=== PATIENT | male | born 1960 | race Caucasian/White ===

== ENCOUNTER → 2021-07-09 | Outpatient (CLI) | payer MEDICARE ==
--- NOTE | 2021-07-09 09:10 | CT ---
EXAMINATION TYPE: CT angio abd aorta w/Runoff DATE OF EXAM: 07/09/2021 COMPARISON: None HISTORY: claudication both legs CT DLP: 915.1 mGycm CONTRAST: CTA thoracic and abdominal aorta with 3-D reconstruction is performed and with IV Contrast, patient i njected with 125 mL of Isovue 370. Please note examination is slightly limited given poor timing of the contrast bolus and delayed imagi ng. Contrast CTA of the abdominal aorta with runoff of the lower extremity arterial system was performed from the lung bases through the ankles and feet. 3-D reconstruction imaging obtained at a separate wo rkstation. ABDOMINAL AORTA: Atheromatous changes of the abdominal aorta without evidence for aneurysm. Iliac vessels: Atheromatous changes of the iliac vessels without stenosis greater than 50%. Femoral arteries: There is long segment occlusion of the right superficial femoral artery with recons titution noted distally. Right-sided profunda femoris is patent however distal branches demonstrated high-grade stenosis. Proximal and mid portions of the left superficial femoral artery are patent with mild atheromatous change. Distally there is extensive atheromatous plaque resulting in high-grade st enosis and short segment occlusion. There is reconstitution at the knee. Popliteal arteries: Popliteal arteries are patent bilaterally with only mild plaque formation noted. Below the knee arteries: Trifurcation is patent bilaterally. Peroneal, anterior and posterior tibial arteries demonstrate mild calcific disease without evidence for hemodynamically significant stenosis. Limited runoff of the ankles and feet given timing of the contrast bolus. LIVER/GB- No significant abnormality is seen. PANCREAS- No significant abnormality is seen. SPLEEN- No significant abnormality is seen. ADRENALS- No significant abnormality is seen. KIDNEYS/BLADDER- No significant abnormality is seen. BOWEL- No Significant abnormality GENITAL ORGANS: No gross abnormality seen. LYMPH NODES- No greater than 1cm abdominal or pelvic lymph nodes are appreciated. OSSEOUS STRUCTURES- No significant abnormality is seen. OTHER- No significant abnormality is seen. IMPRESSION- 1. Long segment occlusion right superficial femoral artery with reconstitution noted distally. 2. Extensive atheromatous plaque distal left SFA with short segment occlusion noted. See above.
== END | disposition home or self-care (01) ==
LOC: RADCTMAIN 07:22
PROVIDERS: ATTEND Surgery
DX: I70.213 Atherosclerosis of native arteries of extremities with intermittent claudication, bilateral legs (principal)
CPT/HCPCS: 75635; Q9967

== ENCOUNTER → 2021-08-24 | Outpatient (CLI) | payer MEDICARE ==
[2021-08-24 13:57] LABS: Basophils % (A) 0 %; Eosinophils % (A) 0 %; HCT 46.8 % (39.0-53.0); HGB 15.8 gm/dL (13.0-17.5); Lymphocytes # (A) 2.2 k/uL (1.0-4.8); Lymphocytes % (A) 24 %; MCH 31.3 pg (25.0-35.0); MCHC 33.7 g/dL (31.0-37.0); MCV 92.7 fL (80.0-100.0); Mean Platelet Volume 6.6; Monocytes # (A) 0.6 k/uL (0-1.0); Monocytes % (A) 7 %; Neutrophils # (A) 5.8 k/uL (1.3-7.7); Neutrophils % (A) 66 %; Platelet Count 253 k/uL (150-450); RBC 5.04 m/uL (4.30-5.90); RDW 13.3 % (11.5-15.5); WBC 8.8 k/uL (3.8-10.6)
[2021-08-24 14:18] LABS: Potassium 4.6 mmol/L (3.5-5.1)
== END | disposition home or self-care (01) ==
LOC: LABPAT 13:03
PROVIDERS: ATTEND Surgery
DX: Z01.812 Encounter for preprocedural laboratory examination (principal); I74.3 Embolism and thrombosis of arteries of the lower extremities
CPT/HCPCS: 36415; 80051; 82565; 84520; 85025

== ENCOUNTER 2021-09-01 10:22 | Day surgery (SDC) | payer MEDICARE ==
[2021-08-31 08:48] VITALS: BMI 27.2
[~2021-09-01 10:22] MED LIST: ALPRAZolam 0.25 MG TAB PO PRN; LACTATED RINGERS 1,000 ML IV SCH; SODIUM CHLORIDE 0.9% 1,000 ML in EMPTY BAG 1 BAG IV ONE
[2021-09-01] MEDS ORDERED: SODIUM CHLORIDE 0.9% 1,000 ML IV ONE (10:40)
[2021-09-01 11:02] VITALS: TEMP 98.6
[2021-09-01] MEDS ORDERED: MIDAZOLAM 2 MG/2 ML VIAL IV ONE (12:00)
[2021-09-01] MEDS ORDERED: LIDOCAINE 1% INJ 10MG/ML (20 ML MDV) SQ ONE (12:01)
[2021-09-01] MEDS: HEPARIN SODIUM 1,000 UN/ML (10ML VL) IV ONE ×2 (12:12→12:59)
[2021-09-01] MEDS ORDERED: fentaNYL (PF) 50 MCG/ML 2 ML AMP IV ONE (13:19)
[2021-09-01] MEDS ORDERED: IOPAMIDOL-250 100ML BTL INTRAARTER ONE ×2 (13:37→14:01)
[2021-09-01] MEDS ORDERED: CLOPIDOGREL 75 MG TAB PO ONE (13:47)
--- NOTE | 2021-09-01 14:27 | IR ---
EXAMINATION TYPE: IR stent intravas non coronary DATE OF EXAM: 09/01/2021 COMPARISON: NONE HISTORY: Fluoroscopy time. Fluoroscopy was provided to the referring clinician.
[2021-09-01 15:42] VITALS: RESP 18
[2021-09-01] MEDS ORDERED: ATORVASTATIN 20 MG TAB PO SCH (16:00)
[2021-09-01] MEDS ORDERED: lisinopriL 10 MG TAB PO SCH (16:00)
[2021-09-01 17:49] VITALS: BP 138/72; PULSE 70
[2021-09-02] MEDS ORDERED: NON FORMULARY DRUG (Fluticasone/Vilanterol [Breo Ellipta 100-25 Mcg Inhaler] 1 EACH Each) PO SCH (10:00)
[2021-09-02] MEDS ORDERED: ASPIRIN 325 MG TAB PO SCH (10:00)
[2021-09-02] MEDS ORDERED: CLOPIDOGREL 75 MG TAB PO SCH (12:00)
--- NOTE | 2021-09-06 07:46 | P.OP ---
Date of Procedure: 09/01/21 Preoperative Diagnosis: Claudication Grafton classification 3 Postoperative Diagnosis: Claudication, right SFA occlusion Procedure(s) Performed: #1 aortogram with right lower extremity selective angiogram third order #2 percutaneous right SFA directional atherectomy with Hawkone device #3 percutaneous transluminal balloon angioplasty of the right superficial femoral artery with iNpact admiral balloon #4 percutaneous transluminal stenting of the right superficial femoral artery 2 #5 ultrasound-guided left common femoral artery access and percutaneous closure #6 conscious sedation x 120 minutes Anesthesia: local, other (Conscious sedation) Surgeon: Hemant Vilchis Estimated Blood Loss (ml): 10 Pathology: none sent Condition: stable Disposition: PACU Indications for Procedure: 60-year-old gentleman presented to the office secondary to pain in his lower extremities with ambulation consistent with disabling claudication. He underwent arterial Doppler which demonstrated ABIs of 0.4 on the right and 0.6 on the left. He was then sent for CT angiogram which demonstrated occlusion of the right superficial femoral artery just after the takeoff as well as left lower extremity SFA occlusive disease. Due to his symptoms being worse on the right it was determined to proceed with revascularization of the right lower extremity. Description of Procedure: After written and informed consent was obtained from the patient and all risks, benefits and complications were described the patient was brought to the [facility] and laid in a supine position. The area of the groins were prepped and draped in the usual sterile fashion. Timeout was performed in the normal fashion. Utilizing ultrasound the left common femoral artery was visualized and shown to be patent without any significant calcification. There was some areas of calcification on the posterior aspect of vessel. The vessel was then cannulated under direct visualization and utilizing Seldinger technique a 6 Turkmen sheath was placed. 035 Glidewire was then placed into the aorta followed by a RBI catheter. Aortogram was then obtained demonstrating patent aortic and bilateral iliac arteries with normal bifurcation. The right lower extremity was then accessed with the catheter. Once catheter was in the femoral artery on the right the wire was exchanged for a Glidewire advantage wire. The 6 Turkmen sheath was then removed and replaced with a 7 Turkmen long 65 cm sheath. Selective angiogram was then obtained of the right lower extremity demonstrating occlusion of the superficial femoral artery with reconstitution at the above- knee popliteal artery. Patient was administered heparin and followed with serial ACTs. Utilizing an 035 Glidewire, angled catheter attempt was placed at accessing the superficial femoral artery. Ultimately an 018 Astato wire was utilized to access the right superficial femoral artery. 035 quick cross catheter Was then placed and using an 035 Glidewire the lesion was crossed. There was a large collateral noted at the distal occlusive site which was actually accessed and crossed into. Once catheter was in place at the collateral multiple wires were then utilized to cross the lesion into the [place] superficial femoral artery. Once across into the artery angiogram was obtained demonstrating good intraluminal access. Distal runoff angiogram was then obtained demonstrating 2 vessel runoff to the foot. A spider filter was then placed and directional atherectomy was performed with a AlphaClone device throughout the entirety of the occlusion. Multiple passes were performed with large amounts of plaque removed. Angiogram was obtained demonstrating good visualization Of improvement of the intraluminal gain. Balloon angioplasty was then performed with multiple impact admiral balloons in order to treat the entirety of the lesion. Once completed angiogram was again obtained demonstrating 2 areas of dissection one proximally and one distally. Low and slow inflation was once again performed without improvement of the dissection and therefore these 2 areas were stented with 7 x 120 mm self-expanding stent for the distal lesion and 6 x 39 mm balloon expandable stent for the proximal lesion which was at the bifurcation. Once completed final angiograms were obtained demonstrating brisk flow and complete resolution of the occlusion. Filter wire was then removed. All guidewires and catheters were then removed and sheath was exchanged for a short 7 Turkmen sheath. Vascade closure device was then placed in normal fashion for hemostasis and vessel closure. The area was cleansed and dressings were placed. The patient tolerated the procedure well and had palpable PT pulse at the conclusion of the procedure in the right lower extremity. He was then sent to PACU for recovery.
== END 2021-09-01 18:00 | disposition home or self-care (01) ==
LOC: CATHCVL 10:22
PROVIDERS: ATTEND Surgery
DX: I74.3 Embolism and thrombosis of arteries of the lower extremities (principal); I73.9 Peripheral vascular disease, unspecified; Z20.822 Contact with and (suspected) exposure to COVID-19
CPT/HCPCS: 37227; 87635; C1894 ×3; C1769 ×5; C1887; C1725; C1714; C1884; C1876 ×2; C2623; C1760; J2250; J2001; J3010; J1644; Q9966

== ENCOUNTER → 2022-07-22 | Outpatient (CLI) | payer MEDICARE ==
[~2022-07-22] MED LIST changes: -ALPRAZolam 0.25 MG TAB PO PRN; -LACTATED RINGERS 1,000 ML IV SCH; +REGADENOSON 0.4 MG/5 ML SYRINGE IV PRN; -SODIUM CHLORIDE 0.9% 1,000 ML in EMPTY BAG 1 BAG IV ONE
--- NOTE | 2022-07-22 10:36 | CA ---
Lexiscan Nuclear Stress Test Report Name: Fan Geiger Exam Date: 07/22/2022 09:08 Exam Location: [facility] Ht (in): 70 Wt (lb): 190 BSA: 2.04 Ordering Phys: Charline Foster DO Referring Phys: FOSTER Technologist: Mando Franklin Age: 61 Gender: M : 1960 Procedure CPT: Indications: I20.9 angina pectoris ICD-10 Codes: Patient History: ASCAD Medications: LISINOPRIL,,,,,, ATORVASTATIN,,,,,, ASA,,,,,, PLAVIX,,,,,, MAGNESIUM,,,,,, VITAMIN D,,,,, Meds past 24 hrs: Pretest Chest Pain: STRESS TEST Lexiscan Protocol Exercise Duration (min:sec): 01:[address] Depressions (mm): Angina Score: Gómez Score: Resting HR (bpm): 72 Peak HR (bpm): 89 Resting BP (mmHg): 139 / 85 Peak BP (mmHg): 135 / 82 MPHR: 158 Target HR: 134 % MPHR: 56 METS: 1.0 Total Dose: Peak Dose: Atropine: Double Product: 42151 BP Response: Stress Termination: INFUSION COMPLETE Stress Symptoms: NO SYMPTOMS Stress Summary: ECG ANALYSIS Resting ECG: Stress ECG: CONCLUSIONS Baseline EKG revealed normal sinus rhythm without significant ST and T-wave changes. With Lexiscan administration the heart rate change from 73-84 bpm and blood pressure changed from 139/85- 125/78. EKG did not reveal any significant ST segment changes. Patient did not have any significant symptoms. This is an unremarkable Lexiscan stress test by EKG criteria. The nuclear scan results which are more pertinent will be reported by the radiologist Dr. Dick Bundy MD (Electronically Signed) Final Date: 22 July 2022 10:35
--- NOTE | 2022-07-22 12:46 | NM ---
"EXAMINATION TYPE: NM stress lexiscan cardiolite DATE OF EXAM: 07/22/2022 COMPARISON: NONE HISTORY: Angina pectoris TECHNIQUE: After the intravenous administration of 9.9 mCi Tc 99m Sestamibi - Cardiolite resting SPE CT images acquired 45 minutes post injection. The patient received 0.4mg Lexiscan, 5.6 mCi Tc 99m Sestamibi - Stress images obtained 40 minutes pos t injection FINDINGS: Review of stress and rest SPECT images demonstrates decreased uptake along the anterior, inferior, ap ical, septal sanchez on stress and rest images. Along the inferior lateral wall towards the base the h eart there is some mild decreased uptake on stress as compared to rest images Gated analysis shows no rmal wall motion with an estimated left ventricular ejection fraction of 44 %. There is some global h ypokinesis. IMPRESSION: Findings suggest prior infarction versus, some laureen-infarct pharmacologically induced left ventricula r myocardial ischemia is suspected A Yellow level critical message alert has been initiated for Charline Foster DO via the [facility] | Critical Results System on 07/22/2022 9:44 AM. This message alert has been sent to DO bahman Foster the preferences provided by the clinician for the receipt of Radiology Critical Findings. Message ID [id number]."
== END | disposition home or self-care (01) ==
LOC: RADNMMAIN 07:39
PROVIDERS: ATTEND Family Medicine
DX: I20.9 Angina pectoris, unspecified (principal)
CPT/HCPCS: 93017; 78452; A9500; J2785

== ENCOUNTER 2023-05-02 18:11 | Inpatient (IN) | payer MEDICARE ==
[2023-05-02] MEDS ORDERED: AMPICILLIN-SULBACTAM 3 GM in SODIUM CHLORIDE 0.9% 100 ML IVPB STA (19:08)
[2023-05-02] MEDS ORDERED: SODIUM CHLORIDE 0.9% 1,000 ML IV STA (19:08)
[2023-05-02] MEDS ORDERED: NALOXONE 0.4 MG/ML 1 ML VIAL IV PRN (19:53)
[2023-05-02] MEDS ORDERED: ONDANSETRON 4 MG/2 ML VIAL IVP PRN (19:53)
[2023-05-02] MEDS ORDERED: MORPHINE SULFATE 4 MG/ML SYRINGE IV PRN (19:53)
[2023-05-02 19:55] LABS: Basophils % (A) 1 %; Eosinophils % (A) 0 %; HGB 14.6 gm/dL (13.0-17.5); Lymphocytes # (A) 0.7 k/uL (1.0-4.8); Lymphocytes % (A) 9 %; MCH 30.1 pg (25.0-35.0); MCHC 33.2 g/dL (31.0-37.0); MCV 90.5 fL (80.0-100.0); Mean Platelet Volume 7.9; Monocytes # (A) 0.8 k/uL (0-1.0); Monocytes % (A) 11 %; Neutrophils # (A) 5.6 k/uL (1.3-7.7); Neutrophils % (A) 76 %; Platelet Count 196 k/uL (150-450); RBC 4.86 m/uL (4.30-5.90); RDW 12.5 % (11.5-15.5); WBC 7.4 k/uL (3.8-10.6)
--- NOTE | 2023-05-02 19:55 | ED ---
Abdominal Pain HPI - General Chief Complaint: Abdominal Pain Stated Complaint: appendicitis Time Seen by Provider: 05/02/23 18:43 Source: patient Mode of arrival: ambulatory Limitations: no limitations - History of Present Illness Initial Comments: This patient is 62-year-old man transferred here from [facility] for further treatment of appendicitis. The patient states she has been having some right lower quadrant abdominal pain since Tuesday. It started off somewhat vague and mild and then today was becoming more severe. He also has had decreased appetite since Tuesday. Again the pain became severe and he went to the other hospital around 3 PM. The patient had computed tomography scan that reportedly showed an enlarged appendix with surrounding inflammation. MD Complaint: abdominal pain Onset/Timin -: days(s) Location: RLQ Radiation: none Migration to: no migration Severity: moderate Quality: aching Consistency: constant Improves With: nothing Worsens With: nothing Associated Symptoms: nausea, anorexia - Related Data Home Medications Medication Instructions Recorded Confirmed lisinopriL [Zestril] 10 mg PO DAILY@1500 01/07/16 05/02/23 Aspirin 325 mg PO DAILY 01/20/16 05/02/23 Clopidogrel [Plavix] 75 mg PO DAILY 08/31/21 05/02/23 Fluticasone/Vilanterol [Breo 1 puff INHALATION RT-DAILY 08/31/21 05/02/23 Ellipta 100-25 Mcg Inhaler] Atorvastatin Calcium [Lipitor] 40 mg PO DAILY@1500 05/02/23 05/02/23 Ergocalciferol (Vitamin D2) 1,250 mcg PO TH 05/02/23 05/02/23 [Drisdol (50,000 Iu)] Metoprolol Succinate (ER) [Toprol 25 mg PO DAILY 05/02/23 05/02/23 XL] Mirtazapine 7.5 mg PO HS 05/02/23 05/02/23 Previous Rx's Medication Instructions Recorded Acetaminophen Tab [Tylenol Tab] 650 mg PO Q4H PRN #30 tablet 05/06/23 Levofloxacin [Levaquin] 500 mg PO DAILY 10 Days #10 tab 05/06/23 metroNIDAZOLE [Flagyl] 500 mg PO TID 10 Days #30 tab 05/06/23 oxyCODONE HCL [OxyIR] 5 mg PO Q6H PRN 3 Days #12 tab 05/06/23 Allergies Allergy/AdvReac Type Severity Reaction Status Date / Time No Known Allergies Allergy Verified 05/02/23 20:15 Review of Systems ROS Statement: Those systems with pertinent positive or pertinent negative responses have been documented in the HPI. ROS Other: All systems not noted in ROS Statement are negative. Constitutional: Denies: fever, chills, weakness Respiratory: Denies: cough, dyspnea Cardiovascular: Denies: chest pain, palpitations, edema Gastrointestinal: Reports: abdominal pain, nausea. Denies: vomiting, diarrhea, melena, hematochezia Genitourinary: Denies: dysuria, hematuria, testicular pain Musculoskeletal: Denies: back pain Skin: Denies: rash Neurological: Denies: headache, weakness Past Medical History Past Medical History: Hyperlipidemia, Myocardial Infarction (IL), Osteoarthritis (OA), Sleep Apnea/CPAP/BIPAP Additional Past Medical History / Comment(s): IL x 2 Last Myocardial Infarction Date:: 2002 History of Any Multi-Drug Resistant Organisms: None Reported Past Surgical History: Heart Catheterization, Heart Catheterization With Stent, Orthopedic Surgery, Tonsillectomy Additional Past Surgical History / Comment(s): angioplasty, knee surgery(not sure which one) Past Anesthesia/Blood Transfusion Reactions: No Reported Reaction Date of Last Stent Placement:: 2002 Past Psychological History: Depression Smoking Status: Current every day smoker Past Alcohol Use History: Rare Past Drug Use History: None Reported - Past Family History Mother Family Medical History: Cancer, Deep Vein Thrombosis (DVT) General Exam Limitations: no limitations General appearance: alert, in no apparent distress Head exam: Present: atraumatic, normocephalic Eye exam: Present: normal appearance. Absent: scleral icterus, conjunctival injection ENT exam: Present: mucous membranes dry Neck exam: Present: normal inspection Respiratory exam: Present: normal lung sounds bilaterally. Absent: respiratory distress, wheezes, rales, rhonchi, stridor Cardiovascular Exam: Present: regular rate, normal rhythm, normal heart sounds. Absent: systolic murmur, diastolic murmur, rubs, gallop GI/Abdominal exam: Present: soft, tenderness (Right lower quadrant). Absent: distended, guarding, rebound, rigid, mass, pulsatile mass Extremities exam: Present: normal inspection, normal capillary refill. Absent: pedal edema, calf tenderness Back exam: Present: normal inspection Neurological exam: Present: alert Skin exam: Present: warm, dry, intact, normal color. Absent: rash Course Vital Signs 05/02/23 05/02/23 05/02/23 18:12 19:17 19:25 Temperature 98.1 F 100.3 F H Pulse Rate 108 H 86 Respiratory 18 16 Rate Blood Pressure 138/85 139/84 O2 Sat by Pulse 98 96 98 Oximetry 05/02/23 05/02/23 05/02/23 19:30 20:00 20:30 Temperature Pulse Rate 84 85 77 Respiratory 11 L 14 16 Rate Blood Pressure 139/84 127/82 132/81 O2 Sat by Pulse 96 95 96 Oximetry 05/02/23 05/02/23 05/02/23 21:00 21:30 22:00 Temperature Pulse Rate 81 77 78 Respiratory 22 15 19 Rate Blood Pressure 127/77 129/80 115/65 O2 Sat by Pulse 95 95 95 Oximetry 05/02/23 05/03/23 05/03/23 22:30 00:00 01:53 Temperature 98.9 F Pulse Rate 77 80 70 Respiratory 21 16 16 Rate Blood Pressure 117/74 123/72 114/54 O2 Sat by Pulse 94 L 96 95 Oximetry 05/03/23 05/03/23 05/03/23 03:56 06:28 06:53 Temperature 97.9 F 98.1 F Pulse Rate 71 70 71 Respiratory 18 16 16 Rate Blood Pressure 119/70 110/58 115/78 O2 Sat by Pulse 95 98 99 Oximetry Medical Decision Making - Medical Decision Making This patient is a 62-year-old man transferred here from [facility] where he had gone after experiencing abdominal pain. The workup there revealed acute appendicitis and he is transferred here for surgical care. I discussed case with the admitting physician, entered orders Was pt. sent in by a medical professional or institution (, PA, SN[facility]OWER, urgent c are, hospital, or usp...) When possible be specific @ -[The patient is transferred from outside hospital Did you speak to anyone other than the patient for history (EMS, parent, family, police, friend...)? What history was obtained from this source @ -[No] Did you review nursing and triage notes (agree or disagree)? Why? @ -[I reviewed and agree with nursing and triage notes] Were old charts reviewed (outside hosp., previous admission, EMS record, old EKG, old radiological studies, urgent care reports/EKG's, usp records)? Report findings @ -[The transfer record was reviewed Differential Diagnosis (chest pain, altered mental status, abdominal pain women, abdominal pain men, vaginal bleeding, weakness, fever, dyspnea, syncope, headache, dizziness, GI bleed, back pain, seizure, CVA, palpatations, mental health, musculoskeletal)? @ -[Differential Abdominal Pain Men: Appendicitis, cholecystitis, diverticulosis, ischemic bowel, pancreatitis, hepatitis, UTI, gastroenteritis, AAA, incarcerated hernia, bowel obstruction, constipation, inflammatory bowel, hepatitis, peptic ulcer disease, splenic in farction, perforated viscus, testicular torsion, this is not meant to be an all- inclusive list EKG interpreted by me (3pts min.). @ -[ X-rays interpreted by me (1pt min.). @ -[None done] CT interpreted by me (1pt min.). @ -[None done] U/S interpreted by me (1pt. min.). @ -[None done] What testing was considered but not performed or refused? (CT, X-rays, U/S, labs)? Why? @ -[None] What meds were considered but not given or refused? Why? @ -[None] Did you discuss the management of the patient with other professionals (professionals i.e. , PA, [facility], lab, RT, psych nurse, adoption social worker, implant polisher, teacher, artillery officer, case specialist)? Give summary @ -[Case is discussed with the surgeon on-call. Was smoking cessation discussed for >3mins.? @ -[No] Was critical care preformed (if so, how long)? @ -[No] Were there social determinants of health that impacted care today? How? (Homelessness, low income, unemployed, alcoholism, drug addiction, transportation, low edu. Level, literacy, decrease access to med. care, halfway, rehab)? @ -[No] Was there de-escalation of care discussed even if they declined (Discuss DNR or withdrawal of care, Hospice)? DNR status @ -[No] What co-morbidities impacted this encounter? (DM, HTN, Smoking, COPD, CAD, Cancer, CVA, ARF, Chemo, Hep., AIDS, mental health diagnosis, sleep apnea, morbid obesity)? @ -[None] Was patient admitted / discharged? Hospital course, mention meds given and rout e, prescriptions, significant lab abnormalities, going to OR and other pertinent info. @ -[Patient is admitted for further surgical care Undiagnosed new problem with uncertain prognosis? @ -[No] Drug Therapy requiring intensive monitoring for toxicity (Heparin, Nitro, Insulin, Cardizem)? @ -[No] Were any procedures done? @ -[No] Diagnosis/symptom? @ -[Acute abdominal pain Acute appendicitis Acute, or Chronic, or Acute on Chronic? @ -[default] Uncomplicated (without systemic symptoms) or Complicated (systemic symptoms)? @ -[Uncomplicated Side effects of treatment? @ -[No] Exacerbation, Progression, or Severe Exacerbation? @ -[No] Poses a threat to life or bodily function? How? (Chest pain, [place], [place], pneumonia, PE, COPD, DKA, ARF, appy, cholecystitis, CVA, Diverticulitis, Homicidal, Suicidal, threat to staff... and all critical care pts) @ -[Untreated appendicitis may lead to worsening conditions including peritonitis, sepsis, . - Lab Data Result diagrams: 05/05/23 07:24 05/07/23 04:42 Lab Results 05/02/23 05/02/23 05/02/23 Range/Units 19:22 19:22 19:22 WBC 7.4 (3.8-10.6) k/uL RBC 4.86 (4.30-5.90) m/uL Hgb 14.6 (13.0-17.5) gm/dL Hct 44.0 (39.0-53.0) % MCV 90.5 (80.0-100.0) fL MCH 30.1 (25.0-35.0) pg MCHC 33.2 (31.0-37.0) g/dL RDW 12.5 (11.5-15.5) % Plt Count 196 (150-450) k/uL MPV 7.9 Neutrophils % 76 % Lymphocytes % 9 % Monocytes % 11 % Eosinophils % 0 % Basophils % 1 % Neutrophils # 5.6 (1.3-7.7) k/uL Lymphocytes # 0.7 L (1.0-4.8) k/uL Monocytes # 0.8 (0-1.0) k/uL Eosinophils # 0.0 (0-0.7) k/uL Basophils # 0.0 (0-0.2) k/uL Sodium 132 L (137-145) mmol/L Potassium 3.9 (3.5-5.1) mmol/L Chloride 96 L (98-107) mmol/L Carbon Dioxide 25 (22-30) mmol/L Anion Gap 11 mmol/L BUN 21 H (9-20) mg/dL Creatinine 1.22 (0.66-1.25) mg/dL Est GFR (CKD-EPI)AfAm 73 (>60 ml/min/1.73 sqM) Est GFR (CKD-EPI)NonAf 63 (>60 ml/min/1.73 sqM) Glucose 104 H (74-99) mg/dL Plasma Lactic Acid Angelo 1.6 (0.7-2.0) mmol/L Calcium 8.5 (8.4-10.2) mg/dL Total Bilirubin 1.6 H (0.2-1.3) mg/dL AST 36 (17-59) U/L ALT 25 (4-49) U/L Alkaline Phosphatase 88 (38-126) U/L Total Protein 6.4 (6.3-8.2) g/dL Albumin 3.7 (3.5-5.0) g/dL Amylase 44 (30-110) U/L Lipase 51 (23-300) U/L Disposition Clinical Impression: Abdominal pain, Appendicitis Disposition: ADMITTED IP TO THIS HOSP Condition: Fair Is patient prescribed a controlled substance at d/c from ED?: No
[2023-05-02 20:05] LABS: ALT 25 U/L (4-49); AST 36 U/L (17-59); African American GFR (CKD) 73 (>60 ml/min/1.73 sqM); Albumin 3.7 g/dL (3.5-5.0); Alkaline Phosphatase 88 U/L (38-126); Amylase 44 U/L (30-110); Anion Gap 11 mmol/L; Blood Urea Nitrogen 21 mg/dL (9-20); Calcium 8.5 mg/dL (8.4-10.2); Carbon Dioxide 25 mmol/L (22-30); Chloride 96 mmol/L (98-107); Glucose 104 mg/dL (74-99); Lipase 51 U/L (23-300); Non-African American GFR(CKD) 63 (>60 ml/min/1.73 sqM); Potassium 3.9 mmol/L (3.5-5.1); Sodium 132 mmol/L (137-145); Total Bilirubin 1.6 mg/dL (0.2-1.3); Total Protein 6.4 g/dL (6.3-8.2)
[2023-05-02] MEDS: SODIUM CHLORIDE 0.9% 1,000 ML IV SCH (20:10)
[2023-05-03] MEDS: AMPICILLIN-SULBACTAM 3 GM in SODIUM CHLORIDE 0.9% 100 ML IVPB SCH ×4 (02:33→20:01)
[2023-05-03] MEDS: SODIUM CHLORIDE 0.9% 1,000 ML IV SCH ×3 (03:05→22:47)
[2023-05-03] MEDS: SYMBICORT 80-4.5 MCG INHALER INHALATION SCH ×2 (07:41→19:31)
[2023-05-03] MEDS ORDERED: LACTATED RINGERS 1,000 ML IV ONE ×2 (07:52→09:56)
[2023-05-03] MEDS ORDERED: HEPARIN SODIUM,PORCINE/PF 5,000 UNIT/0.5 ML SYRINGE SQ ONE (08:24)
[2023-05-03] MEDS ORDERED: ONDANSETRON 4 MG/2 ML VIAL IVP ONE (08:26)
--- NOTE | 2023-05-03 08:26 | P.GSHP ---
History of Present Illness H&P Date: 05/03/23 Chief Complaint: Appendicitis, right lower quadrant pain This a 62-year-old male who has a one-week history of right lower quadrant pain. Patient was seen by his primary care doctor and sent for CAT scan at [facility]. Patient was found have evidence of enlarged appendix with evidence of periappendiceal inflammation suggestive of appendicitis. Patient has been on blood thinners. Patient takes anticoagulants. His last dose L Belen was yesterday. Past Medical History Past Medical History: Hyperlipidemia, Myocardial Infarction ([place]), Osteoarthritis (OA), Sleep Apnea/CPAP/BIPAP Additional Past Medical History / Comment(s): [place] x 2 Last Myocardial Infarction Date:: 2002 History of Any Multi-Drug Resistant Organisms: None Reported Past Surgical History: Heart Catheterization, Heart Catheterization With Stent, Orthopedic Surgery, Tonsillectomy Additional Past Surgical History / Comment(s): angioplasty, knee surgery(not sure which one) Past Anesthesia/Blood Transfusion Reactions: No Reported Reaction Date of Last Stent Placement:: 2002 Past Psychological History: Depression Smoking Status: Current every day smoker Past Alcohol Use History: Rare Past Drug Use History: None Reported - Past Family History Mother Family Medical History: Cancer, Deep Vein Thrombosis (DVT) Medications and Allergies Home Medications Medication Instructions Recorded Confirmed Type lisinopriL [Zestril] 10 mg PO DAILY@1500 01/07/16 05/02/23 History Aspirin 325 mg PO DAILY 01/20/16 05/02/23 History Clopidogrel [Plavix] 75 mg PO DAILY 08/31/21 05/02/23 History Fluticasone/Vilanterol [Breo 1 puff INHALATION RT-DAILY 08/31/21 05/02/23 History Ellipta 100-25 Mcg Inhaler] Atorvastatin Calcium [Lipitor] 40 mg PO DAILY@1500 05/02/23 05/02/23 History Ergocalciferol (Vitamin D2) 1,250 mcg PO TH 05/02/23 05/02/23 History [Drisdol (50,000 Iu)] Metoprolol Succinate (ER) [Toprol 25 mg PO DAILY 05/02/23 05/02/23 History Xl] Mirtazapine 7.5 mg PO HS 05/02/23 05/02/23 History Allergies Allergy/AdvReac Type Severity Reaction Status Date / Time No Known Allergies Allergy Verified 05/02/23 20:15 Surgical - Exam Vital Signs Temp Pulse Resp BP Pulse Ox 98.1 F 108 H 18 138/85 98 05/02/23 18:12 05/02/23 18:12 05/02/23 18:12 05/02/23 18:12 05/02/23 18:12 - General well developed, well nourished, no distress - Eyes PERRL - ENT normal pinna - Neck no masses - Respiratory normal expansion - Cardiovascular Rhythm: regular - Abdomen Right lower quadrant pain Abdomen: soft Results - Labs 05/02/23 19:22 05/02/23 19:22 Abnormal Lab Results - Last 24 Hours (Table) 05/02/23 05/02/23 Range/Units 19:22 19:22 Lymphocytes # 0.7 L (1.0-4.8) k/uL Sodium 132 L (137-145) mmol/L Chloride 96 L (98-107) mmol/L BUN 21 H (9-20) mg/dL Glucose 104 H (74-99) mg/dL Total Bilirubin 1.6 H (0.2-1.3) mg/dL Diabetes panel 05/02/23 Range/Units 19:22 Sodium 132 L (137-145) mmol/L Potassium 3.9 (3.5-5.1) mmol/L Chloride 96 L (98-107) mmol/L Carbon Dioxide 25 (22-30) mmol/L BUN 21 H (9-20) mg/dL Creatinine 1.22 (0.66-1.25) mg/dL Glucose 104 H (74-99) mg/dL Calcium 8.5 (8.4-10.2) mg/dL AST 36 (17-59) U/L ALT 25 (4-49) U/L Alkaline Phosphatase 88 (38-126) U/L Total Protein 6.4 (6.3-8.2) g/dL Albumin 3.7 (3.5-5.0) g/dL Calcium panel 05/02/23 Range/Units 19:22 Calcium 8.5 (8.4-10.2) mg/dL Albumin 3.7 (3.5-5.0) g/dL Pituitary panel 05/02/23 Range/Units 19:22 Sodium 132 L (137-145) mmol/L Potassium 3.9 (3.5-5.1) mmol/L Chloride 96 L (98-107) mmol/L Carbon Dioxide 25 (22-30) mmol/L BUN 21 H (9-20) mg/dL Creatinine 1.22 (0.66-1.25) mg/dL Glucose 104 H (74-99) mg/dL Calcium 8.5 (8.4-10.2) mg/dL Adrenal panel 05/02/23 Range/Units 19:22 Sodium 132 L (137-145) mmol/L Potassium 3.9 (3.5-5.1) mmol/L Chloride 96 L (98-107) mmol/L Carbon Dioxide 25 (22-30) mmol/L BUN 21 H (9-20) mg/dL Creatinine 1.22 (0.66-1.25) mg/dL Glucose 104 H (74-99) mg/dL Calcium 8.5 (8.4-10.2) mg/dL Total Bilirubin 1.6 H (0.2-1.3) mg/dL AST 36 (17-59) U/L ALT 25 (4-49) U/L Alkaline Phosphatase 88 (38-126) U/L Total Protein 6.4 (6.3-8.2) g/dL Albumin 3.7 (3.5-5.0) g/dL Assessment and Plan Assessment: Chronic/acute appendicitis. Seven-day history of right lower quadrant pain. Patient will undergo laparoscopic appendectomy. I did discuss the risk of bleeding and potential conversion to the open procedure.
[2023-05-03] MEDS ORDERED: NEOSTIGMINE 1 MG/ML 10 ML VIAL ONE (08:47)
[2023-05-03] MEDS ORDERED: HYDROmorphone (PF) 1 MG/ML ONE (08:47)
[2023-05-03] MEDS ORDERED: ROCURONIUM 10 MG/ML (5 ML VIAL) IV ONE (08:47)
[2023-05-03] MEDS ORDERED: PROPOFOL 10 MG/ML 20 ML VIAL IV ONE (08:47)
[2023-05-03] MEDS ORDERED: MIDAZOLAM 2 MG/2 ML VIAL ONE (08:47)
[2023-05-03] MEDS ORDERED: SUCCINYLCHOLINE CHLORIDE 200 MG/10 ML VIAL IV ONE (08:47)
[2023-05-03] MEDS ORDERED: KETOROLAC 15 MG/ML 1 ML VIAL ONE (08:47)
[2023-05-03] MEDS ORDERED: LIDOCAINE 2% INJ 20 MG/ML (2 ML VIAL) ONE (08:47)
[2023-05-03] MEDS ORDERED: GLYCOPYRROLATE 0.2 MG/ML 2 ML VIAL ONE (08:47)
[2023-05-03] MEDS ORDERED: fentaNYL (PF) 50 MCG/ML 2 ML AMP ONE (08:47)
[2023-05-03] MEDS ORDERED: BUPIVACAINE (PF) 0.25% 30 ML VIAL SQ ONE ×2 (08:59→09:09)
[2023-05-03] MEDS ORDERED: ceFAZolin 1,000 MG VIAL ONE (09:00)
[2023-05-03] MEDS ORDERED: SODIUM CHLORIDE 0.9% 100 ML BAG ONE (09:00)
[2023-05-03] MEDS ORDERED: HYDROmorphone 0.5 MG/0.5 ML SYRINGE IVP PRN (09:56)
[2023-05-03] MEDS ORDERED: NALOXONE 0.4 MG/ML 1 ML VIAL IV PRN (09:56)
[2023-05-03] MEDS ORDERED: ONDANSETRON 4 MG/2 ML VIAL IVP PRN (09:56)
[2023-05-03] MEDS ORDERED: ACETAMINOPHEN TAB 325 MG TAB PO PRN (09:56)
--- NOTE | 2023-05-03 09:56 | P.OP ---
Date of Procedure: 05/03/23 Preoperative Diagnosis: Acute appendicitis Postoperative Diagnosis: Acute appendicitis with necrosis of the appendix, perforation Procedure(s) Performed: Laparoscopic appendectomy Anesthesia: JULIAN Surgeon: Moses Kurtz Estimated Blood Loss (ml): 5 Pathology: other (Appendix) Condition: stable Disposition: PACU Description of Procedure: The patient's placed on the operating table in the supine position. The patient received general anesthesia. The abdomen was prepped and draped in the usual sterile fashion. The skin was anesthetized 1% local Xylocaine at the trocar sites. Using an 11 blade the skin was incised at the umbilicus. The umbilicus was grasped with a [place] clamp and then a Veress needle was placed into the peritoneal cavity. Position of the Veress needle was confirmed with positive drop test. After adequate insufflation a 5 mm trocar was placed into the peritoneal cavity. The abdomen was further insufflated. And then the laparoscope was placed in the peritoneal cavity. Next a 5 mm trocar was placed in the midline suprapubic position. And then a 10 mm trocar was placed in the midline epigastric position. The patient was rotated with the right side up and in Trendelenburg. The appendix was visualized. The appendix appeared to be in flamed. There was obvious appendicitis. There was a perforation of the midportion appendix. This area appeared to be necrotic. The appendix was grasped and then using the Harmonic scissors the mesoappendix was divided. A PDS Endoloop was then placed around the base of the appendix. And then the appendix was divided using Harmonic scissors. The appendix was placed into an Endo Catch and brought out through the 10 mm trocar site. The abdomen was irrigated. There is no bleeding seen. A CONI drain is placed in the right lower quadrant. This was brought out through the 10 mm trocar site. The trochars withdrawn. The skin was closed interrupted 3-0 Monocryl suture. Dermabond dressing was applied. Patient was sent to recovery room in stable condition.
[2023-05-03] MEDS: KETOROLAC 15 MG/ML 1 ML VIAL IVP SCH ×2 (13:24→17:04)
[2023-05-03] MEDS: METOPROLOL SUCCINATE (ER) 25 MG TAB.ER.24H PO SCH (13:35)
[2023-05-03] MEDS ORDERED: lisinopriL 10 MG TAB PO SCH (15:00)
[2023-05-03] MEDS: HYDROcodone/APAP 5-325MG 1 EACH TAB PO PRN (15:16)
[2023-05-03] MEDS: DOCUSATE 100 MG CAP PO SCH (20:01)
[2023-05-04] MEDS ORDERED: KETOROLAC 15 MG/ML 1 ML VIAL ONE
[2023-05-04] MEDS: SODIUM CHLORIDE 0.9% 1,000 ML IV SCH ×3 (06:36→20:23)
[2023-05-04] MEDS: KETOROLAC 15 MG/ML 1 ML VIAL IVP SCH ×5 (06:51→23:11)
[2023-05-04] MEDS: AMPICILLIN-SULBACTAM 3 GM in SODIUM CHLORIDE 0.9% 100 ML IVPB SCH ×4 (06:51→20:12)
[2023-05-04] MEDS: ENOXAPARIN 40 MG/0.4 ML SYRINGE SQ SCH (07:45)
[2023-05-04] MEDS: DOCUSATE 100 MG CAP PO SCH ×2 (07:45→22:11)
[2023-05-04] MEDS: METOPROLOL SUCCINATE (ER) 25 MG TAB.ER.24H PO SCH (07:47)
[2023-05-04 08:17] LABS: Basophils # (A) 0.1 k/uL (0-0.2); Basophils % (A) 1 %; Eosinophils # (A) 0.1 k/uL (0-0.7); Eosinophils % (A) 1 %; HCT 37.1 % (39.0-53.0); HGB 11.9 gm/dL (13.0-17.5); Lymphocytes % (A) 11 %; MCH 29.6 pg (25.0-35.0); MCV 92.6 fL (80.0-100.0); Mean Platelet Volume 8.3; Monocytes # (A) 0.6 k/uL (0-1.0); Monocytes % (A) 7 %; Neutrophils # (A) 6.9 k/uL (1.3-7.7); Neutrophils % (A) 77 %; Platelet Count 167 k/uL (150-450); RDW 13.1 % (11.5-15.5); WBC 9.1 k/uL (3.8-10.6)
[2023-05-04 08:41] LABS: ALT 22 U/L (4-49); African American GFR (CKD) 88 (>60 ml/min/1.73 sqM); Albumin 2.6 g/dL (3.5-5.0); Anion Gap 5 mmol/L; Blood Urea Nitrogen 15 mg/dL (9-20); Calcium 7.2 mg/dL (8.4-10.2); Carbon Dioxide 24 mmol/L (22-30); Chloride 105 mmol/L (98-107); Globulin 2.5 g/dL; Glucose 102 mg/dL (74-99); Non-African American GFR(CKD) 76 (>60 ml/min/1.73 sqM); Sodium 134 mmol/L (137-145); Total Bilirubin 2.5 mg/dL (0.2-1.3); Total Protein 5.1 g/dL (6.3-8.2)
[2023-05-04 08:57] LABS: AST 44 U/L (17-59); Alkaline Phosphatase 40 U/L (38-126); Potassium 4.6 mmol/L (3.5-5.1)
[2023-05-04] MEDS: SYMBICORT 80-4.5 MCG INHALER INHALATION SCH ×2 (09:12→20:35)
[2023-05-04] MEDS: HYDROmorphone 1 MG/ML 1 ML SYRINGE IVP PRN ×2 (09:23→13:48)
[2023-05-04] MEDS: NICOTINE 21MG/24HR PATCH TRANSDERM SCH (10:33)
[2023-05-04] MEDS: HYDROcodone/APAP 5-325MG 1 EACH TAB PO PRN ×2 (11:38→20:10)
--- NOTE | 2023-05-04 12:36 | P.CONS ---
History of Present Illness - Reason for Consult Consult date: 05/04/23 Medical management nicotine dependence Requesting physician: Moses Kurtz - Chief Complaint Abdominal pain - History of Present Illness This is 62-year-old gentleman with past medical history significant for CAD, [place], hyperlipidemia , obesity, sleep apnea, ongoing nicotine dependence, depression and multiple other medical issues, transferred from [facility]. Diagnosed with acute appendicitis with necrosis of the appendix/ perforation, status post laparoscopic appendectomy. Tolerated procedure well. Blood pressures soft, ZAID inhibitor discontinued. Receiving IV fluid hydration. Positive pain. Denies nausea, vomiting. Reports diarrhea yesterday. Denies chest pain, palpitations or shortness of breath. Denies chills. Maintained on Unasyn, afebrile, T-max 100.3, WBC normal. Lactic acid 1.6 Renal function improving, BUN 15, creatinine 1.04. T bili increased to 2.5. Review of Systems ROS Statement: Those systems with pertinent positive or pertinent negative responses have been documented in the HPI. ROS Other: All systems not noted in ROS Statement are negative. Past Medical History Past Medical History: Hyperlipidemia, Myocardial Infarction ([place]), Osteoarthritis ([place]), Sleep Apnea/CPAP/BIPAP Additional Past Medical History / Comment(s): [place] x 2, skin ca on his face with removal . Last Myocardial Infarction Date:: 2002 History of Any Multi-Drug Resistant Organisms: None Reported Past Surgical History: Heart Catheterization, Heart Catheterization With Stent, Orthopedic Surgery, Tonsillectomy Additional Past Surgical History / Comment(s): angioplasty, knee surgery(not sure which one), bilat great toe surgeries Past Anesthesia/Blood Transfusion Reactions: No Reported Reaction Date of Last Stent Placement:: 2002 Past Psychological History: Depression Smoking Status: Current every day smoker Past Alcohol Use History: Rare Additional Past Alcohol Use History / Comment(s): smokes 1PPD for 43 yrs Past Drug Use History: None Reported - Past Family History Mother Family Medical History: Cancer, Deep Vein Thrombosis (DVT) Medications and Allergies Home Medications Medication Instructions Recorded Confirmed Type lisinopriL [Zestril] 10 mg PO DAILY@1500 01/07/16 05/02/23 History Aspirin 325 mg PO DAILY 01/20/16 05/02/23 History Clopidogrel [Plavix] 75 mg PO DAILY 08/31/21 05/02/23 History Fluticasone/Vilanterol [Breo 1 puff INHALATION RT-DAILY 08/31/21 05/02/23 History Ellipta 100-25 Mcg Inhaler] Atorvastatin Calcium [Lipitor] 40 mg PO DAILY@1500 05/02/23 05/02/23 History Ergocalciferol (Vitamin D2) 1,250 mcg PO TH 05/02/23 05/02/23 History [Drisdol (50,000 Iu)] Metoprolol Succinate (ER) [Toprol 25 mg PO DAILY 05/02/23 05/02/23 History Xl] Mirtazapine 7.5 mg PO HS 05/02/23 05/02/23 History Allergies Allergy/AdvReac Type Severity Reaction Status Date / Time No Known Allergies Allergy Verified 05/02/23 20:15 Physical Exam Vitals: Vital Signs Temp Pulse Resp BP Pulse Ox 05/04/23 09:20 86 119/70 05/04/23 07:08 98.0 F 68 17 94/60 90 L 05/04/23 02:00 98.1 F 72 16 102/61 90 L 05/03/23 19:37 97.7 F 79 16 93/57 92 L 05/03/23 14:51 91 16 116/74 90 L 05/03/23 14:39 110 H 25 H 05/03/23 14:36 98 16 122/76 90 L 05/03/23 14:21 93 16 119/75 90 L 05/03/23 14:07 94 16 112/71 91 L 05/03/23 13:51 96 16 111/72 05/03/23 13:36 89 16 118/77 89 L 05/03/23 13:21 99.1 F 95 16 137/82 91 L 05/03/23 13:06 105 H 16 147/87 93 L 05/03/23 12:52 100.3 F H 110 H 25 H 167/89 90 L 05/03/23 12:10 84 16 132/79 99 Intake and Output 05/03/23 05/04/23 05/04/23 22:59 06:59 14:59 Intake Total 480 236 Output Total 50 50 Balance 430 186 Intake: Oral 480 236 Output: Drainage 50 50 Left Abdomen 50 50 Other: # Voids 1 PHYSICAL EXAM: VITAL SIGNS: [As above] GENERAL: Alert and oriented 3, Sitting up in bed, no acute distress HEENT: Normocephalic Conjunctivae normal. eyes normal. NECK: Supple, No JVD. No thyroid enlargement. No LNs CARDIOVASCULAR: S1, S2 regular. No murmur RESPIRATION: Breath sounds diminished in the bases. No rhonchi or crackles. No bronchial breathing. ABDOMEN: Soft, status post surgery, surgical dressings-1 with shadowing outlined with drain. No guarding. LEGS: No edema. no swelling NERVOUS SYSTEM: Cranial N 2-12 grossly normal. Moves all 4 limbs. No focal deficits. Strength and sensation grossly intact. Skin: Warm and dry, no rash Results CBC & Chem 7: 05/04/23 07:32 05/04/23 07:32 Labs: Abnormal Lab Results - Last 24 Hours (Table) 05/04/23 05/04/23 Range/Units 07:32 07:32 RBC 4.00 L (4.30-5.90) m/uL Hgb 11.9 L (13.0-17.5) gm/dL Hct 37.1 L (39.0-53.0) % Sodium 134 L (137-145) mmol/L Glucose 102 H (74-99) mg/dL Calcium 7.2 L (8.4-10.2) mg/dL Total Bilirubin 2.5 H (0.2-1.3) mg/dL Total Protein 5.1 L (6.3-8.2) g/dL Albumin 2.6 L (3.5-5.0) g/dL Assessment and Plan Assessment: Acute appendicitis with necrosis of the appendix, perforation, status post laparoscopic appendectomy Elevated T bili Acute postoperative anemia, possibly dilutional Acute renal failure, improving Ongoing nicotine dependence CAD, history of [place] Hyperlipidemia Obesity, BMI 28.2 Obstructive sleep apnea, wears CPAP Depression Plan: Continue on current medication regime ,monitoring and symptomatic treatment. PPI ordered for GI prophylaxis. Aggressive pulmonary toileting with Incentive spirometer ordered. Pain management, antibiotics as per primary. Smoking cessation reinforced, nicotine patch ordered. IV fluid hydration. ZAID inhibitor placed on hold at this time secondary to soft blood pressures. Close monitoring of CBC, renal function and LFTs with repeat labs ordered for a.m. The impression and plan of care has been dictated as directed. : I performed a history and examination of this patient, discussed the same with the dictator. I agree with the dictator's note ,documented as a scribe. Any additional findings or plans will be noted.
[2023-05-04] MEDS: PANTOPRAZOLE 40 MG/10 ML VIAL IVP SCH (13:47)
--- NOTE | 2023-05-04 15:24 | P.PN ---
Subjective Progress Note Date: 05/04/23 CHIEF COMPLAINT: Appendicitis HISTORY OF PRESENT ILLNESS: Patient is postop day #1 status post laparoscopic appendectomy for acute appendicitis with necrosis of the appendix and perforation. Patient does complain of abdominal pain. He had only been receiving IV morphine. Nurses Is switching to the IV Dilaudid as well as [place] and Toradol regimen. He did have a low-grade temp of 100.3 around noon ye sterday. He has been hypotensive. BP of 94/60. He has been up and inability without dizziness. Medicine service has discontinued lisinopril. Repeat BP 119/70. Patient does have a known history of myocardial infarction in 2002 and history of stent in his leg 2 years ago. He is on Plavix at home. WBC is 9.1hgb 11.9 platelets 167. CONI drain with 55 mL cervicitis output Patient seen and examined with Dr. flynn PHYSICAL EXAM: VITAL SIGNS: Reviewed. GENERAL: Well-developed in no acute distress. HEENT: No sclera icterus. Extraocular movements grossly intact. Moist buccal mucosa. Head is atraumatic, normocephalic. ABDOMEN: Distended. Tender incision sites. CONI drain with serous Rowdy's output. NEUROLOGIC: Alert and oriented. Cranial nerves II through XII grossly intact. ASSESSMENT: 1. Acute appendicitis with necrosis of the appendix and perforation status post laparoscopic appendectomy 2. Low-grade temp likely due to atelectasis PLAN: -Continue pain management. Morphine discontinued. Continue with the IV Dilaudid -Okay to resume patient's Plavix -Continue IV fluids -Medicine recommendations noted and appreciated -Continue clear liquid diet. Recommend avoiding carbonated beverages -Encouraged patient to use incentive spirometer -Encourage patient to ambulate -DVT prophylaxis Lovenox and GI prophylaxis Protonix Physician Level Vial Inspector And Tester note has been reviewed by physician. Signing provider agrees with the documented findings, assessment, and plan of care. Objective - Vital Signs Vital signs: Vital Signs Temp 98.0 F 05/04/23 07:08 Pulse 86 05/04/23 09:20 Resp 17 05/04/23 07:08 BP 119/70 05/04/23 09:20 Pulse Ox 90 L 05/04/23 07:08 FiO2 Intake & Output 05/03/23 05/04/23 05/04/23 18:59 06:59 18:59 Intake Total 1810 236 Output Total 60 50 Balance 1750 186 Weight 89 kg Intake: IV 850 Oral 960 236 Output: Drainage 50 50 Left Abdomen 50 50 Estimated Blood Loss 10 Other: # Voids 1 - Labs CBC & Chem 7: 05/04/23 07:32 05/04/23 07:32 Labs: Abnormal Lab Results - Last 24 Hours (Table) 05/04/23 05/04/23 Range/Units 07:32 07:32 RBC 4.00 L (4.30-5.90) m/uL Hgb 11.9 L (13.0-17.5) gm/dL Hct 37.1 L (39.0-53.0) % Sodium 134 L (137-145) mmol/L Glucose 102 H (74-99) mg/dL Calcium 7.2 L (8.4-10.2) mg/dL Total Bilirubin 2.5 H (0.2-1.3) mg/dL Total Protein 5.1 L (6.3-8.2) g/dL Albumin 2.6 L (3.5-5.0) g/dL
[2023-05-05] MEDS: AMPICILLIN-SULBACTAM 3 GM in SODIUM CHLORIDE 0.9% 100 ML IVPB SCH ×4 (02:57→21:26)
[2023-05-05] MEDS: SODIUM CHLORIDE 0.9% 1,000 ML IV SCH ×4 (02:58→21:31)
[2023-05-05] MEDS: KETOROLAC 15 MG/ML 1 ML VIAL IVP SCH (06:19)
[2023-05-05] MEDS: METOPROLOL SUCCINATE (ER) 25 MG TAB.ER.24H PO SCH (09:34)
[2023-05-05] MEDS: CLOPIDOGREL 75 MG TAB PO SCH (09:34)
[2023-05-05] MEDS: ENOXAPARIN 40 MG/0.4 ML SYRINGE SQ SCH (09:34)
[2023-05-05] MEDS: DOCUSATE 100 MG CAP PO SCH ×2 (09:34→21:28)
[2023-05-05] MEDS: PANTOPRAZOLE 40 MG/10 ML VIAL IVP SCH (09:34)
[2023-05-05] MEDS: NICOTINE 21MG/24HR PATCH TRANSDERM SCH (09:47)
[2023-05-05] MEDS: SYMBICORT 80-4.5 MCG INHALER INHALATION SCH ×2 (09:56→21:54)
[2023-05-05 11:14] LABS: HCT 37.7 % (39.6-50.0); HGB 12.2 d/dL (12.0-15.0); MCH 29.8 pg (27.0-32.0); MCHC 32.4 d/dL (32.0-37.0); MCV 92.2 FL (80.0-97.0); Mean Platelet Volume 11.3 FL (9.5-12.2); NRBC Per 100 WBC 0 X 10*3/uL (0.00-0.01); Platelet Count 187 X 10*3/uL (140-440); RBC 4.09 X 10*6/uL (4.40-5.60); RDW 13.6 % (11.5-14.5)
[2023-05-05 11:19] LABS: ALT 26 U/L (10-49); AST 38 U/L (14-35); Alkaline Phosphatase 72 U/L (41-126); Blood Urea Nitrogen 10.4 mg/dL (9.0-27.0); Calcium 7.9 mg/dL (8.7-10.3); Carbon Dioxide 21.8 mmol/L (21.6-31.8); Chloride 104 mmol/L (96-109); Globulin 2.3 d/dL (1.6-3.3); Glucose 98 mg/dL (70-110); Potassium 3.9 mmol/L (3.5-5.5); Sodium 138 mmol/L (135-145); Total Bilirubin 0.9 mg/dL (0.3-1.2); Total Protein 5.3 d/dL (6.2-8.2)
--- NOTE | 2023-05-05 11:23 | P.PN ---
Subjective Progress Note Date: 05/05/23 - History of Present Illness This is 62-year-old gentleman with past medical history significant for CAD, [place], hyperlipidemia , obesity, sleep apnea, ongoing nicotine dependence, depression and multiple other medical issues, transferred from [facility]. Diagnosed with acute appendicitis with necrosis of the appendix/ perforation, status post laparoscopic appendectomy. Tolerated procedure well. Blood pressures soft, ZAID inhibitor discontinued. Receiving IV fluid hydration. Positive pain. Denies nausea, vomiting. Reports diarrhea yesterday. Denies chest pain, palpitations or shortness of breath. Denies chills. Maintained on Unasyn, afebrile, T-max 100.3, WBC normal. Lactic acid 1.6 Renal function improving, BUN 15, creatinine 1.04. T bili increased to 2.5. 05/05/2023 Maintained on IV fluid hydration. Reporting feels better better,surgical discomfort improved. Complains of chronic back pain, eased with sitting up in chair. Tolerating diet with no nausea vomiting or diarrhea. Small bowel movement yesterday. Denies chills sweats. Labs pending. Afebrile. Denies chest pain, palpitations or shortness of breath. Maintaining O2 sats in the 90s on room air. Objective - Vital Signs Vital signs: Vital Signs Temp 98.3 F 05/05/23 07:09 Pulse 76 05/05/23 07:09 Resp 18 05/05/23 07:09 BP 137/72 05/05/23 07:09 Pulse Ox 94 L 05/05/23 07:09 FiO2 Intake & Output 05/04/23 05/05/23 05/05/23 18:59 06:59 18:59 Intake Total 236 Output Total 70 10 Balance 166 -10 Intake: Oral 236 Output: Drainage 70 10 Left Abdomen 70 10 Other: # Voids 2 2 - Exam PHYSICAL EXAM: VITAL SIGNS: [As above] GENERAL: Alert and oriented 3, Sitting up in chair no acute distress HEENT: Normocephalic Conjunctivae normal. eyes normal. MMM. NECK: Supple, No JVD. CARDIOVASCULAR: S1, S2 regular. No murmur RESPIRATION: CTA.Breath sounds diminished in the bases. ABDOMEN: Soft, status post surgery, No guarding. No rigidity. CONI drain with minimal serosanguineous drainage. LEGS: No edema. no swelling NERVOUS SYSTEM: Cranial N 2-12 grossly normal. No focal deficits. Strength and sensation grossly intact. Skin: Warm and dry, no rash - Labs CBC & Chem 7: 05/04/23 07:32 05/04/23 07:32 Assessment and Plan Assessment: Acute appendicitis with necrosis of the appendix, perforation, status post laparoscopic appendectomy Elevated T bili Acute postoperative anemia, possibly dilutional Acute renal failure, improving Ongoing nicotine dependence CAD, history of [place] Hyperlipidemia Obesity, BMI 28.2 Obstructive sleep apnea, wears CPAP Depression Plan: Continue on current medication regime ,monitoring and symptomatic treatment. Labs pending, continue with close monitoring of LFTs,hgb. and renal function. IV fluid hydration. Maintain aggressive pulmonary toileting with Incentive spirometer reinforced. ZAID inhibitor initially placed on hold secondary to soft blood pressures, continue close monitoring. Diet advancement, Pain management, antibiotics as per primary. Smoking cessation reinforced. The impression and plan of care has been dictated as directed. : I performed a history and examination of this patient, discussed the same with the dictator. I agree with the dictator's note ,documented as a scribe. Any additional findings or plans will be noted.
[2023-05-05 11:59] LABS: Basophils # (A) 0.07 X 10*3/uL (0.00-0.10); Basophils % (A) 0.8 %; Eosinophils # (A) 0.17 X 10*3/uL (0.04-0.35); Eosinophils % (A) 1.9 %; Lymphocytes # (A) 1.02 X 10*3/uL (0.90-5.00); Lymphocytes % (A) 11.6 %; Monocytes # (A) 0.77 X 10*3/uL (0.20-1.00); Monocytes % (A) 8.8 %; Neutrophils # (A) 6.64 X 10*3/uL (1.80-7.70); Neutrophils % (A) 75.4 %; RBC Morphology Normal (Normal)
--- NOTE | 2023-05-05 13:38 | P.PN ---
Subjective Progress Note Date: 05/05/23 CHIEF COMPLAINT: Appendicitis HISTORY OF PRESENT ILLNESS: Patient is postop day #2 status post laparoscopic appendectomy for acute appendicitis with necrosis of the appendix and perforation. Patient reports his pain has improved. He is having flatus and bowel movements. Appetite diminished. Denies any nausea or vomiting. Sitting up at bedside chair. Afebrile. BP improved. WBC 8.80 Hgb 12.2 platelet 187 Na 138 potassium is 3.9 creatinine 1.0 CONI drain with 70 mL serosanguineous output yesterday and 10 ml this morning Patient seen and examined with Dr. flynn PHYSICAL EXAM: VITAL SIGNS: Reviewed. GENERAL: Well-developed in no acute distress. HEENT: No sclera icterus. Extraocular movements grossly intact. Moist buccal mucosa. Head is atraumatic, normocephalic. ABDOMEN: Soft. Nondistended. Incision site is clean dry and intact. CONI drain with serosanguineous output NEUROLOGIC: Alert and oriented. Cranial nerves II through XII grossly intact. ASSESSMENT: 1. Acute appendicitis with necrosis of the appendix and perforation status post laparoscopic appendectomy 2. Low-grade temp likely due to atelectasis PLAN: -Advance diet to full liquids -Encourage patient to ambulate -Encourage patient to use incentive spirometer -Continue pain management -Plavix has been resumed -DVT prophylaxis Lovenox and GI prophylaxis Protonix Physician Cushion Assembler note has been reviewed by physician. Signing provider agrees with the documented findings, assessment, and plan of care. Objective - Vital Signs Vital signs: Vital Signs Temp 98.3 F 05/05/23 07:09 Pulse 76 05/05/23 07:09 Resp 18 05/05/23 07:09 BP 137/72 05/05/23 07:09 Pulse Ox 94 L 05/05/23 07:09 FiO2 Intake & Output 05/04/23 05/05/23 05/05/23 18:59 06:59 18:59 Intake Total 236 Output Total 70 10 Balance 166 -10 Intake: Oral 236 Output: Drainage 70 10 Left Abdomen 70 10 Other: Voiding Method Toilet # Voids 2 2 - Labs CBC & Chem 7: 05/05/23 07:24 05/05/23 07:24 Labs: Abnormal Lab Results - Last 24 Hours (Table) 05/05/23 05/05/23 Range/Units 07:24 07:24 RBC 4.09 L (4.40-5.60) X 10*6/uL Hct 37.7 L (39.6-50.0) % Anion Gap 12.20 H (4.00-12.00) mmol/L BUN/Creatinine Ratio 10.40 L (12.00-20.00) Ratio Calcium 7.9 L (8.7-10.3) mg/dL AST 38 H (14-35) U/L Total Protein 5.3 L (6.2-8.2) d/dL Albumin 3.0 L (3.8-4.9) d/dL Albumin/Globulin Ratio 1.30 L (1.60-3.17) Ratio
[2023-05-05] MEDS: HYDROcodone/APAP 5-325MG 1 EACH TAB PO PRN ×2 (15:35→21:27)
[2023-05-06] MEDS: AMPICILLIN-SULBACTAM 3 GM in SODIUM CHLORIDE 0.9% 100 ML IVPB SCH ×4 (01:37→21:23)
[2023-05-06] MEDS: SYMBICORT 80-4.5 MCG INHALER INHALATION SCH ×2 (08:43→21:06)
[2023-05-06] MEDS: PANTOPRAZOLE 40 MG/10 ML VIAL IVP SCH (09:06)
[2023-05-06] MEDS: HYDROcodone/APAP 5-325MG 1 EACH TAB PO PRN ×2 (09:16→21:22)
[2023-05-06] MEDS: ENOXAPARIN 40 MG/0.4 ML SYRINGE SQ SCH (09:16)
[2023-05-06] MEDS: CLOPIDOGREL 75 MG TAB PO SCH (09:17)
[2023-05-06] MEDS: DOCUSATE 100 MG CAP PO SCH (09:17)
[2023-05-06] MEDS: METOPROLOL SUCCINATE (ER) 25 MG TAB.ER.24H PO SCH (09:17)
[2023-05-06] MEDS: NICOTINE 21MG/24HR PATCH TRANSDERM SCH (09:20)
--- NOTE | 2023-05-06 12:38 | P.PN ---
Subjective Progress Note Date: 05/06/23 CHIEF COMPLAINT: Appendicitis HISTORY OF PRESENT ILLNESS: Patient is postop day #3 status post laparoscopic appendectomy for acute appendicitis with necrosis of the appendix and perforation. Patient sitting at bedside chair. He does complain of abdominal pain. Pain is controlled with pain medication. Denies any nausea or vomiting. He is having flatus and bowel movements. Afebrile. No new labs. Plavix resumed yesterday Patient seen and examined with Dr. flynn PHYSICAL EXAM: VITAL SIGNS: Reviewed. GENERAL: Well-developed in no acute distress. HEENT: No sclera icterus. Extraocular movements grossly intact. Moist buccal mucosa. Head is atraumatic, normocephalic. ABDOMEN: Soft. Nondistended. Incision site is clean dry and intact. CONI drain with serosanguineous output NEUROLOGIC: Alert and oriented. Cranial nerves II through XII grossly intact. ASSESSMENT: 1. Acute appendicitis with necrosis of the appendix and perforation status post laparoscopic appendectomy 2. Low-grade temp likely due to atelectasis PLAN: -Continue full liquid diet -Encourage patient to ambulate -Encourage patient to use incentive spirometer -Continue pain management -Anticipate discharge possibly tomorrow or Tuesday. Patient will be discharged home with oral antibiotics and continue CONI drain at discharge -DVT prophylaxis Lovenox and GI prophylaxis Protonix Physician Paper Handler note has been reviewed by physician. Signing provider agrees with the documented findings, assessment, and plan of care. Objective - Vital Signs Vital signs: Vital Signs Temp 97.8 F 05/06/23 02:00 Pulse 60 05/06/23 02:00 Resp 16 05/05/23 18:53 BP 118/68 05/06/23 02:00 Pulse Ox 95 05/06/23 02:00 FiO2 Intake & Output 05/05/23 05/06/23 05/06/23 18:59 06:59 18:59 Intake Total 340 Output Total 50 Balance 290 Intake: Intake, IV Titration 340 Amount Ampicillin-Sulbactam 3 gm 100 In Sodium Chloride 0.9% 100 ml @ 200 mls/hr IVPB Q6H [facility] Rx#:[id number] Sodium Chloride 0.9% 1, 240 000 ml @ 130 mls/hr IV . [id number] [facility] Rx#:[id number] Output: Drainage 50 Left Abdomen 50 Other: Voiding Method Toilet # Voids 4 1 - Labs CBC & Chem 7: 05/05/23 07:24 05/05/23 07:24 Labs: Abnormal Lab Results - Last 24 Hours (Table) 05/05/23 05/05/23 Range/Units 07:24 07:24 RBC 4.09 L (4.40-5.60) X 10*6/uL Hct 37.7 L (39.6-50.0) % Anion Gap 12.20 H (4.00-12.00) mmol/L BUN/Creatinine Ratio 10.40 L (12.00-20.00) Ratio Calcium 7.9 L (8.7-10.3) mg/dL AST 38 H (14-35) U/L Total Protein 5.3 L (6.2-8.2) d/dL Albumin 3.0 L (3.8-4.9) d/dL Albumin/Globulin Ratio 1.30 L (1.60-3.17) Ratio
--- NOTE | 2023-05-06 14:29 | P.PN ---
Subjective Progress Note Date: 05/06/23 - History of Present Illness This is 62-year-old gentleman with past medical history significant for CAD, [place], hyperlipidemia , obesity, sleep apnea, ongoing nicotine dependence, depression and multiple other medical issues, transferred from [facility]. Diagnosed with acute appendicitis with necrosis of the appendix/ perforation, status post laparoscopic appendectomy. Tolerated procedure well. Blood pressures soft, ZAID inhibitor discontinued. Receiving IV fluid hydration. Positive pain. Denies nausea, vomiting. Reports diarrhea yesterday. Denies chest pain, palpitations or shortness of breath. Denies chills. Maintained on Unasyn, afebrile, T-max 100.3, WBC normal. Lactic acid 1.6 Renal function improving, BUN 15, creatinine 1.04. T bili increased to 2.5. 05/05/2023 Maintained on IV fluid hydration. Reporting feels better better,surgical discomfort improved. Complains of chronic back pain, eased with sitting up in chair. Tolerating diet with no nausea vomiting or diarrhea. Small bowel movement yesterday. Denies chills sweats. Labs pending. Afebrile. Denies chest pain, palpitations or shortness of breath. Maintaining O2 sats in the 90s on room air. 05/06/2023 . Significant clinical improvement. Pain controlled, minimal right-side abdominal soreness. Positive diet intake with no nausea vomiting or diarrhea. Reports small bowel movements daily. Afebrile. Yesterday T bili returned to normal, 0.9. Afebrile. Denies chest pain, palpitations or shortness of breath. Maintaining O2 sats in the 90s on room air. Ambulating, tolerating exertion well. Objective - Vital Signs Vital signs: Vital Signs Temp 97.8 F 05/06/23 07:44 Pulse 75 05/06/23 07:44 Resp 18 05/06/23 07:44 BP 137/74 05/06/23 07:44 Pulse Ox 95 05/06/23 07:44 FiO2 Intake & Output 05/05/23 05/06/23 05/06/23 18:59 06:59 18:59 Intake Total 340 Output Total 50 Balance 290 Intake: Intake, IV Titration 340 Amount Ampicillin-Sulbactam 3 gm 100 In Sodium Chloride 0.9% 100 ml @ 200 mls/hr IVPB Q6H [facility] Rx#:[id number] Sodium Chloride 0.9% 1, 240 000 ml @ 130 mls/hr IV . Q7H42M [facility] Rx#:[id number] Output: Drainage 50 Left Abdomen 50 Other: Voiding Method Toilet Toilet # Voids 4 1 3 - Exam PHYSICAL EXAM: VITAL SIGNS: [As above] GENERAL: Alert and oriented 3, Sitting up in chair no acute distress HEENT: Normocephalic Conjunctivae normal. eyes normal. MMM. NECK: Supple, No JVD. CARDIOVASCULAR: S1, S2 regular. No murmur RESPIRATION: CTA.Breath sounds diminished in the bases. ABDOMEN: Soft, status post surgery, No guarding. No rigidity. CONI drain with minimal serosanguineous drainage. LEGS: No edema. no swelling NERVOUS SYSTEM: Cranial N 2-12 grossly normal. No focal deficits. Strength and sensation grossly intact. Skin: Warm and dry, no rash - Labs CBC & Chem 7: 05/05/23 07:24 05/05/23 07:24 Assessment and Plan Assessment: Acute appendicitis with necrosis of the appendix, perforation, status post laparoscopic appendectomy Elevated T bili, resolved Acute postoperative anemia, possibly dilutional Acute renal failure, improving Ongoing nicotine dependence CAD, history of PA Hyperlipidemia Obesity, BMI 28.2 Obstructive sleep apnea, wears CPAP Depression Plan: Continue on current medication regime ,monitoring and symptomatic treatment. Maintain aggressive pulmonary toileting with Incentive spirometer reinforced. Diet advancement, Pain management, antibiotics as per primary. Smoking cessation reinforced. Follow-up with PCP in one week. The impression and plan of care has been dictated as directed. : I performed a history and examination of this patient, discussed the same with the dictator. I agree with the dictator's note ,documented as a scribe. Any additional findings or plans will be noted.
[2023-05-06] MEDS ORDERED: FUROSEMIDE 10 MG/ML 4 ML VIAL IV STA (16:09)
[2023-05-07] MEDS: DOCUSATE 100 MG CAP PO SCH ×3 (00:59→20:43)
[2023-05-07] MEDS: AMPICILLIN-SULBACTAM 3 GM in SODIUM CHLORIDE 0.9% 100 ML IVPB SCH ×4 (02:16→20:44)
[2023-05-07] MEDS: PANTOPRAZOLE 40 MG/10 ML VIAL IVP SCH (08:08)
[2023-05-07] MEDS: ENOXAPARIN 40 MG/0.4 ML SYRINGE SQ SCH (08:23)
[2023-05-07] MEDS: CLOPIDOGREL 75 MG TAB PO SCH (08:24)
[2023-05-07] MEDS: METOPROLOL SUCCINATE (ER) 25 MG TAB.ER.24H PO SCH (08:24)
[2023-05-07] MEDS: NICOTINE 21MG/24HR PATCH TRANSDERM SCH (08:28)
[2023-05-07] MEDS: SYMBICORT 80-4.5 MCG INHALER INHALATION SCH ×2 (09:45→22:15)
[2023-05-07] MEDS: HYDROcodone/APAP 5-325MG 1 EACH TAB PO PRN ×2 (10:57→18:51)
[2023-05-07] MEDS: SODIUM CHLORIDE 0.9% 1,000 ML IV SCH ×2 (11:02→22:53)
[2023-05-07 12:24] LABS: Blood Urea Nitrogen 6.1 mg/dL (9.0-27.0); Carbon Dioxide 25.4 mmol/L (21.6-31.8); Chloride 104 mmol/L (96-109); Glucose 93 mg/dL (70-110); Potassium 3.7 mmol/L (3.5-5.5); Sodium 141 mmol/L (135-145)
--- NOTE | 2023-05-07 14:14 | P.PN ---
Subjective Progress Note Date: 05/07/23 This is 62-year-old gentleman with past medical history significant for CAD, [place], hyperlipidemia , obesity, sleep apnea, ongoing nicotine dependence, depression and multiple other medical issues, transferred from [facility]. Diagnosed with acute appendicitis with necrosis of the appendix/ perforation, status post laparoscopic appendectomy. Tolerated procedure well. Blood pressures soft, ZAID inhibitor discontinued. Receiving IV fluid hydration. Positive pain. Denies nausea, vomiting. Reports diarrhea yesterday. Denies chest pain, palpitations or shortness of breath. Denies chills. Maintained on Unasyn, afebrile, T-max 100.3, WBC normal. Lactic acid 1.6 Renal function improving, BUN 15, creatinine 1.04. T bili increased to 2.5. 05/05/2023 Maintained on IV fluid hydration. Reporting feels better better,surgical discomfort improved. Complains of chronic back pain, eased with sitting up in chair. Tolerating diet with no nausea vomiting or diarrhea. Small bowel movement yesterday. Denies chills sweats. Labs pending. Afebrile. Denies chest pain, palpitations or shortness of breath. Maintaining O2 sats in the 90s on room air. 05/06/2023 . Significant clinical improvement. Pain controlled, minimal right- side abdominal soreness. Positive diet intake with no nausea vomiting or diarrhea. Reports small bowel movements daily. Afebrile. Yesterday T bili returned to normal, 0.9. Afebrile. Denies chest pain, palpitations or shortness of breath. Maintaining O2 sats in the 90s on room air. Ambulating, tolerating exertion well. 05/07. Patient seen and examined. Labs reviewed. Abdominal pain improved. Tolerating diet REVIEW OF SYSTEMS: CONSTITUTIONAL: No fever, no malaise,. CARDIOVASCULAR: No chest pain, no palpitations, no syncope. PULMONARY: No shortness of breath, no cough, GASTROINTESTINAL: No diarrhea, no nausea, no vomiting, no abdominal pain. NEUROLOGICAL: No headaches, no weakness, PHYSICAL EXAMINATION: GENERAL: The patient is alert and oriented x3, not in any acute distress. Well developed, well nourished. HEENT: Pupils are round and equally reacting to light. EOMI. No scleral icterus. No conjunctival pallor. Normocephalic, atraumatic. No pharyngeal erythema. No thyromegaly. CARDIOVASCULAR: S1 and S2 present. No murmurs, rubs, or gallops. PULMONARY: Chest is clear to auscultation, no wheezing or crackles. ABDOMEN: Soft, tender in the right lower quadrant, surgical incision seen, drain in place MUSCULOSKELETAL: No joint swelling or deformity. EXTREMITIES: No cyanosis, clubbing, or pedal edema. NEUROLOGICAL: Gross neurological examination did not reveal any focal deficits. SKIN: No rashes. Assessment and plan Acute appendicitis with necrosis of the appendix, perforation, status post laparoscopic appendectomy Elevated T bili, resolved Acute postoperative anemia, possibly dilutional Acute renal failure, improving Ongoing nicotine dependence CAD, history of [place] Hyperlipidemia Obesity, BMI 28.2 Obstructive sleep apnea, wears CPAP Depression Monitor vital signs Monitor CBC Monitor CMP Continue pain management Aggressive pulmonary hygiene Continue use of I-S Continue IV Unasyn per per surgery Continue rest of treatment Patient medically stable for discharge DVT prophylaxis: Objective - Vital Signs Vital signs: Vital Signs Temp 98.0 F 05/07/23 07:14 Pulse 78 05/07/23 07:14 Resp 19 05/07/23 07:14 BP 142/89 05/07/23 07:14 Pulse Ox 94 L 05/07/23 07:14 FiO2 Intake & Output 05/06/23 05/07/23 05/07/23 18:59 06:59 18:59 Output Total 170 20 Balance -170 -20 Output: Drainage 20 20 Left Abdomen 20 20 Urine 150 Other: Voiding Method Toilet # Voids 3 2 # Bowel Movements 1 - Labs CBC & Chem 7: 05/05/23 07:24 05/07/23 04:42
--- NOTE | 2023-05-07 16:51 | P.PN ---
Subjective Progress Note Date: 05/07/23 Pain control. CONI serosanguineous. Advance diet to low fiber. Anticipated disposition 48 hours Objective - Vital Signs Vital signs: Vital Signs Temp 98.4 F 05/07/23 13:41 Pulse 62 05/07/23 13:41 Resp 19 05/07/23 13:41 BP 130/75 05/07/23 13:41 Pulse Ox 97 05/07/23 13:41 FiO2 Intake & Output 05/06/23 05/07/23 05/07/23 18:59 06:59 18:59 Output Total 170 20 30 Balance -170 -20 -30 Output: Drainage 20 20 30 Left Abdomen 20 20 30 Urine 150 Other: Voiding Method Toilet # Voids 3 2 # Bowel Movements 1 - Labs CBC & Chem 7: 05/05/23 07:24 05/07/23 04:42 Labs: Abnormal Lab Results - Last 24 Hours (Table) 05/07/23 Range/Units 04:42 BUN 6.1 L (9.0-27.0) mg/dL BUN/Creatinine Ratio 6.10 L (12.00-20.00) Ratio Calcium 8.0 L (8.7-10.3) mg/dL
[2023-05-08] MEDS: AMPICILLIN-SULBACTAM 3 GM in SODIUM CHLORIDE 0.9% 100 ML IVPB SCH ×3 (02:03→14:55)
[2023-05-08] MEDS: HYDROcodone/APAP 5-325MG 1 EACH TAB PO PRN (06:32)
[2023-05-08 07:29] VITALS: BP 151/75; PULSE 63; RESP 16; TEMP 98.2
[2023-05-08] MEDS: PANTOPRAZOLE 40 MG/10 ML VIAL IVP SCH (08:02)
[2023-05-08] MEDS: SYMBICORT 80-4.5 MCG INHALER INHALATION SCH (08:25)
[2023-05-08] MEDS: METOPROLOL SUCCINATE (ER) 25 MG TAB.ER.24H PO SCH (09:05)
[2023-05-08] MEDS: DOCUSATE 100 MG CAP PO SCH (09:05)
[2023-05-08] MEDS: CLOPIDOGREL 75 MG TAB PO SCH (09:05)
[2023-05-08] MEDS: ENOXAPARIN 40 MG/0.4 ML SYRINGE SQ SCH (09:06)
[2023-05-08] MEDS: NICOTINE 21MG/24HR PATCH TRANSDERM SCH (09:09)
--- NOTE | 2023-05-08 14:22 | P.PN ---
Subjective Progress Note Date: 05/08/23 This is 62-year-old gentleman with past medical history significant for CAD, [place], hyperlipidemia , obesity, sleep apnea, ongoing nicotine dependence, depression and multiple other medical issues, transferred from [facility]. Diagnosed with acute appendicitis with necrosis of the appendix/ perforation, status post laparoscopic appendectomy. Tolerated procedure well. Blood pressures soft, ZAID inhibitor discontinued. Receiving IV fluid hydration. Positive pain. Denies nausea, vomiting. Reports diarrhea yesterday. Denies chest pain, palpitations or shortness of breath. Denies chills. Maintained on Unasyn, afebrile, T-max 100.3, WBC normal. Lactic acid 1.6 Renal function improving, BUN 15, creatinine 1.04. T bili increased to 2.5. 05/05/2023 Maintained on IV fluid hydration. Reporting feels better better,surgical discomfort improved. Complains of chronic back pain, eased with sitting up in chair. Tolerating diet with no nausea vomiting or diarrhea. Small bowel movement yesterday. Denies chills sweats. Labs pending. Afebrile. Denies chest pain, palpitations or shortness of breath. Maintaining O2 sats in the 90s on room air. 05/06/2023 . Significant clinical improvement. Pain controlled, minimal right- side abdominal soreness. Positive diet intake with no nausea vomiting or diarrhea. Reports small bowel movements daily. Afebrile. Yesterday T bili returned to normal, 0.9. Afebrile. Denies chest pain, palpitations or shortness of breath. Maintaining O2 sats in the 90s on room air. Ambulating, tolerating exertion well. 05/07. Patient seen and examined. Labs reviewed. Abdominal pain improved. Tolerating diet 05/08. Patient seen and examined. No acute issues overnight. Tolerating diet. Denies any abdominal pain REVIEW OF SYSTEMS: CONSTITUTIONAL: No fever, no malaise,. CARDIOVASCULAR: No chest pain, no palpitations, no syncope. PULMONARY: No shortness of breath, no cough, GASTROINTESTINAL: No diarrhea, no nausea, no vomiting, no abdominal pain. NEUROLOGICAL: No headaches, no weakness, PHYSICAL EXAMINATION: GENERAL: The patient is alert and oriented x3, not in any acute distress. Well developed, well nourished. HEENT: Pupils are round and equally reacting to light. EOMI. No scleral icterus. No conjunctival pallor. Normocephalic, atraumatic. No pharyngeal erythema. No thyromegaly. CARDIOVASCULAR: S1 and S2 present. No murmurs, rubs, or gallops. PULMONARY: Chest is clear to auscultation, no wheezing or crackles. ABDOMEN: Soft, tender in the right lower quadrant, surgical incision seen, drain in place MUSCULOSKELETAL: No joint swelling or deformity. EXTREMITIES: No cyanosis, clubbing, or pedal edema. NEUROLOGICAL: Gross neurological examination did not reveal any focal deficits. SKIN: No rashes. Assessment and plan Acute appendicitis with necrosis of the appendix, perforation, status post laparoscopic appendectomy Elevated T bili, resolved Acute postoperative anemia, possibly dilutional Acute renal failure, improving Ongoing nicotine dependence CAD, history of [place] Hyperlipidemia Obesity, BMI 28.2 Obstructive sleep apnea, wears CPAP Depression Monitor vital signs Monitor CBC Monitor CMP Continue pain management Aggressive pulmonary hygiene Continue use of I-S Continue drain management per surgery Continue IV Unasyn per per surgery Continue rest of treatment Patient medically stable for discharge DVT prophylaxis: Objective - Vital Signs Vital signs: Vital Signs Temp 98.2 F 05/08/23 07:28 Pulse 63 05/08/23 07:28 Resp 16 05/08/23 07:28 BP 151/75 05/08/23 07:28 Pulse Ox 96 05/08/23 07:28 FiO2 Intake & Output 05/07/23 05/08/23 05/08/23 18:59 06:59 18:59 Intake Total 118 240 Output Total 50 Balance 68 240 Intake: Oral 118 240 Output: Drainage 50 Left Abdomen 50 Other: # Voids 3 2 - Labs CBC & Chem 7: 05/05/23 07:24 05/07/23 04:42 Labs: Abnormal Lab Results - Last 24 Hours (Table) 05/07/23 Range/Units 04:42 BUN 6.1 L (9.0-27.0) mg/dL BUN/Creatinine Ratio 6.10 L (12.00-20.00) Ratio Calcium 8.0 L (8.7-10.3) mg/dL
--- NOTE | 2023-05-08 22:48 | P.DS ---
Providers Date of admission: 05/02/23 19:53 Expected date of discharge: 05/08/23 Attending physician: Moses Kurtz Consults: 05/03/23 08:24 Consult Physician Routine Consulting Provider: Jax Foster Consult Reason/Comments: Medical management Do you want consulting provider notified?: Yes Primary care physician: Charline [facility] Course: Patient tolerating diet. Pain control. Discharged with CONI drain. Plan - Discharge Summary Discharge Rx Participant: No New Discharge Prescriptions: New Levofloxacin [Levaquin] 500 mg PO DAILY 10 Days #10 tab metroNIDAZOLE [Flagyl] 500 mg PO TID 10 Days #30 tab oxyCODONE HCL [OxyIR] 5 mg PO Q6H PRN 3 Days #12 tab PRN Reason: Pain Acetaminophen Tab [Tylenol Tab] 650 mg PO Q4H PRN #30 tablet PRN Reason: Pain Continue lisinopriL [Zestril] 10 mg PO DAILY@1500 Aspirin 325 mg PO DAILY Fluticasone/Vilanterol [Breo Ellipta 100-25 Mcg Inhaler] 1 puff INHALATION RT-DAILY Atorvastatin Calcium [Lipitor] 40 mg PO DAILY@1500 Clopidogrel [Plavix] 75 mg PO DAILY Mirtazapine 7.5 mg PO HS Metoprolol Succinate (ER) [Toprol XL] 25 mg PO DAILY Ergocalciferol (Vitamin D2) [Drisdol (50,000 Iu)] 1,250 mcg PO TH Discharge Medication List lisinopriL [Zestril] 10 mg PO DAILY@1500 01/07/16 [History] Aspirin 325 mg PO DAILY 01/20/16 [History] Clopidogrel [Plavix] 75 mg PO DAILY 08/31/21 [History] Fluticasone/Vilanterol [Breo Ellipta 100-25 Mcg Inhaler] 1 puff INHALATION RT-DAILY 08/31/21 [History] Atorvastatin Calcium [Lipitor] 40 mg PO DAILY@1500 05/02/23 [History] Ergocalciferol (Vitamin D2) [Drisdol (50,000 Iu)] 1,250 mcg PO TH 05/02/23 [History] Metoprolol Succinate (ER) [Toprol XL] 25 mg PO DAILY 05/02/23 [History] Mirtazapine 7.5 mg PO HS 05/02/23 [History] Acetaminophen Tab [Tylenol Tab] 650 mg PO Q4H PRN #30 tablet 05/06/23 [Rx] Levofloxacin [Levaquin] 500 mg PO DAILY 10 Days #10 tab 05/06/23 [Rx] metroNIDAZOLE [Flagyl] 500 mg PO TID 10 Days #30 tab 05/06/23 [Rx] oxyCODONE HCL [OxyIR] 5 mg PO Q6H PRN 3 Days #12 tab 05/06/23 [Rx] Follow up Appointment(s)/Referral(s): Charline Foster DO [Primary Care Provider] - 1-2 days Moses Kurtz MD [STAFF PHYSICIAN] - 1 Week Patient Instructions/Handouts: Laparoscopic Appendectomy (DC) Activity/Diet/Wound Care/Special Instructions: No driving while taking oxyIR No lifting over 10 pounds You may shower. No soaking or tub baths for 2 weeks Very light activity until you are reevaluated at your follow up appointment with your surgeon Keep a log of CONI drain output and bring with you to your follow-up appointment Milk/strip drains 2-3 times a day Discharge Disposition: HOME SELF-CARE
== END 2023-05-08 15:44 | disposition home or self-care (01) | DRG 339 ==
LOC: EC 18:11 → 3SCARD 19:53 → 4SSUR 20:26
PROVIDERS: ADMIT Surgery; ATTEND Surgery
PROC: 0DTJ4ZZ Resection of Appendix, Percutaneous Endoscopic Approach (ICD-10-PCS; principal; 2023-05-03 07:30)
DX: K35.32 Acute appendicitis with perforation, localized peritonitis, and gangrene, without abscess (principal); D62 Acute posthemorrhagic anemia; N17.9 Acute kidney failure, unspecified; J98.11 Atelectasis; I95.9 Hypotension, unspecified; E66.9 Obesity, unspecified; F32.A Depression, unspecified; I25.2 Old myocardial infarction; E78.5 Hyperlipidemia, unspecified; M19.90 Unspecified osteoarthritis, unspecified site; F17.210 Nicotine dependence, cigarettes, uncomplicated; I25.10 Atherosclerotic heart disease of native coronary artery without angina pectoris; G47.33 Obstructive sleep apnea (adult) (pediatric); M54.9 Dorsalgia, unspecified; Z79.82 Long term (current) use of aspirin; Z79.02 Long term (current) use of antithrombotics/antiplatelets; Z79.899 Other long term (current) drug therapy; Z71.6 Tobacco abuse counseling; Z68.28 Body mass index [BMI] 28.0-28.9, adult; Z95.5 Presence of coronary angioplasty implant and graft; Z79.51 Long term (current) use of inhaled steroids
CPT/HCPCS: 36415; 80048; 80053; 82150; 83605; 83690; 85025; 88304; 94640; 96361; 96374; 99285